=== PATIENT | male | born 1995 | race Caucasian/White ===

== ENCOUNTER 2016-12-14 07:19 | Emergency (ER) | payer BC, OTHER ==
[~2016-12-14 07:19] MED LIST: Z.0.NO CURRENT MEDS
[2016-12-14 07:23] VITALS: BP 137/80; PULSE 66; RESP 16; TEMP 98.6; O2SAT 100
--- NOTE | 2016-12-14 08:03 | PD ---
HPI Chief Complaint: Injury Time Seen by Provider: 07:30 Travel History International Travel<30 days: No Contact w/Intl Traveler<30days: No Traveled to known affect area: No History of Present Illness HPI 21-year-old male presents with right ankle pain after wrestling with his buddies last night at about 10 PM. He states that it instantly hurt. Quality pain is sharp. Severity is moderate. Pain is worse with movement. He denies other concurrent complaints. [facility] Past Medical History Medical History: Denies Significant Hx Influenza Vaccination: No Past Surgical History Surgical History: No Previous Surgery Social History Alcohol Use: Yes (SOCIALLY) Tobacco Use: Yes (OCCASIONALLY) Substance Use: No Allergies-Medications (Allergen,Severity, Reaction): Coded Allergies: No Known Allergies (Verified , 04/18/11) Reported Meds & Prescriptions Reported Meds & Active Scripts Active No Active Prescriptions or Reported Medications Review of Systems Except as stated in HPI: all other systems reviewed are Neg Physical Exam Narrative General: 21 y/o patient in no apparent distress Skin: trauma noted to right ankle with swelling Eyes: Pupils equal NECK: no pain with range of motion Cardiovascular: Regular rate and rhythm Respiratory: Normal respiratory effort noted Abdomen: soft, nontender, nondistended Back: No step-offs, midline spine nontender with palpation Extremities: Pain with palpation of right ankle only, no lacerations over, neurovascularly intact, no pain with palpation of other joints Neuro: awake, alert, sensation and motor grossly intact Data Data Last Documented VS Vital Signs Date Time Temp Pulse Resp B/P Pulse Ox O2 Delivery O2 Flow Rate FiO2 12/14/16 07:44 100 Room Air 12/14/16 07:23 98.6 66 16 137/80 Orders Ankle, Complete ([id number]) (12/14/16 ) Ketorolac Inj (Toradol Inj) (12/14/16 08:15) [facility] Medical Decision Making Medical Screen Exam Complete: Yes Emergency Medical Condition: Yes Medical Record Reviewed: Yes (past history confirmed) Interpretation(s) right ankle xray no fracture Differential Diagnosis Fracture, strain, sprain Narrative Course We'll check x-ray and reevaluate after Toradol xray without fracture, Patient denies any new complaints and states that they are feeling better. Patient happy with care, all questions answered. Patient knows that follow up is incumbent on them and to return to the emergency room immediately if new or worsening symptoms develop. Patient given strict return precautions, vitals reviewed and are normal, agrees to further workup as an outpatient. Diagnosis Primary Impression: Right ankle strain Qualified Code: S96.911A - Right ankle strain, initial encounter Patient Instructions: General Instructions Additional Instructions: alternate tylenol and motrin, follow with primary in one week for recheck, return as needed Med/Other Pt SpecificInfo: No Change to Meds Scripts No Active Prescriptions or Reported Meds Disposition: 01 DISCHARGE HOME Condition: Stable Lamar Lindsay MD Dec 14, 2016 08:03
[2016-12-14] MEDS ORDERED: KETOROLAC TROMETHAMINE 60 MG/2 ML (IM) VIAL IM ONE (08:15)
--- NOTE | 2016-12-14 08:37 | RADHPO ---
EXAM DATE/TIME: 12/14/2016 08:13 [place] COMPARISON: No previous studies available for comparison. INDICATIONS : Right ankle pain & swelling post wrestling injury. MEDICAL HISTORY : None. SURGICAL HISTORY : None. ENCOUNTER: Initial ACUITY: 2 days PAIN SCORE: 8/10 LOCATION: Right lateral ankle FINDINGS: There is marked soft tissue swelling lateral malleolus. Alignment is anatomic. Fracture is not mari reciated. CONCLUSION: Soft tissue swelling without fracture. Followup if symptoms persist. Allan Garcia MD FACR on December 14, 2016 at 8:32 Board Certified Radiologist. This report was verified electronically.
== END 2016-12-14 09:06 | disposition home or self-care (01) ==
LOC: PHED 07:19
DX: S96.911A Strain of unspecified muscle and tendon at ankle and foot level, right foot, initial encounter (principal); X50.1XXA Overexertion from prolonged static or awkward postures, initial encounter; Y93.72 Activity, wrestling; Z72.0 Tobacco use
CPT/HCPCS: 73610; 96372; 99283; J1885